=== PATIENT | male | born 1960 | race Caucasian/White ===

== ENCOUNTER 2018-01-07 08:34 | Emergency (ER) | payer OTHER ==
[~2018-01-07] VITALS: Ht 188 cm; Wt 95.3 kg
[2018-01-07] MEDS ORDERED: PAXIL40 MG PO (08:49)
[2018-01-07] MEDS ORDERED: PRILOSEC 20 MG20 MG PO (08:50)
[2018-01-07] MEDS ORDERED: PERCOCET 5-3251 EACH PO (09:55)
[2018-01-07 12:02] VITALS: BP 127/86
== END 2018-01-07 12:27 | disposition home or self-care (01) ==
LOC: ER 08:34
DX: S82.891A Other fracture of right lower leg, initial encounter for closed fracture (principal); W20.8XXA Other cause of strike by thrown, projected or falling object, initial encounter; Y93.89 Activity, other specified; Y92.89 Other specified places as the place of occurrence of the external cause; Y99.8 Other external cause status

== ENCOUNTER → 2018-04-10 | Outpatient (CLI) | payer OTHER ==
[~2018-04-10] MED LIST: PAXIL40 MG PO; PERCOCET 5-3251 EACH PO; PRILOSEC 20 MG20 MG PO
== END ==
LOC: MRI 06:21
DX: S46.012A Strain of muscle(s) and tendon(s) of the rotator cuff of left shoulder, initial encounter (principal)

== ENCOUNTER 2018-06-13 05:30 | Day surgery (SDC) | payer OTHER ==
[~2018-06-13] VITALS: Ht 188 cm; Wt 95.3 kg
--- NOTE | ~2018-06-13 | O ---
[facility] [place] [address] OPERATIVE REPORT Name: SHAUN URIARTE Room #: 150-1 [facility] M.R.#: [id number] Admission: 06/13/18 Attend Phys: Cb Gonzalez Discharge: Date of : 64 Report #: [id number] THIS REPORT FOR: //name// CC: FAM unknown Cb Greene DATE OF SERVICE: 06/13/2018 PREOPERATIVE DIAGNOSES: Left shoulder pain, partial thickness rotator cuff tear, impingement syndrome, frayed glenoid labrum. POSTOPERATIVE DIAGNOSES: Left shoulder rotator cuff tear, upper border of subscapularis, high-grade and partial thickness lesion of the posterior supraspinatus, impingement syndrome, complex labral tear, long head of biceps tendon subluxation and partial thickness tear, glenohumeral joint chondromalacia, subacromial bursitis. PROCEDURE PERFORMED: Right shoulder arthroscopy, rotator cuff repair of the subscapularis and supraspinatus, subacromial decompression, arthroscopic biceps tenodesis, extensive debridement. SURGEON: Cb Greene MD DISTRICT MANAGER IN TRAINING: Moni Tinajero PA-C. ANESTHESIA: General with preoperative interscalene block. FLUIDS: 500 mL crystalloid. ESTIMATED BLOOD LOSS: Less than 5 mL. DESCRIPTION OF PROCEDURE: After proper identification of the patient and operative site in preoperative holding area, the operative site was signed by myself. Prophylactic antibiotics given. The patient elected to receive an interscalene block after reviewing the risks, benefits, alternatives and potential complications with anesthesia. After a satisfactory block, the patient was brought back to the operative suite and after induction of satisfactory general anesthesia, the left shoulder was examined. It was stable throughout a full arc of motion and comparable to the preoperative assessment. The patient was carefully positioned in the right lateral decubitus position, thomas bag and axillary roll were utilized to support the torso. Left shoulder was sterilely prepped and draped in usual manner and placed in 10 pounds of balanced arthroscopic suspension. Posterior portal was established, joint was inflated with an arthroscopic pump set at 40 mmHg. Anterior superior portal was created using a spinal needle for localization. Examination of the glenohumeral joint revealed complex labral fraying and tearing of the anterior superior, [facility] [address] [place] [address] OPERATIVE REPORT Name: SHAUN URIARTE Room #: 150-1 [facility] M..#: [id number] Admission: 06/13/18 Attend Phys: Cb Gonzalez Discharge: Date of : 64 Report #: [id number] posterior superior and posterior inferior quadrants. Frayed labrum was carefully debrided with motorized shaver. Mild chondral thinning and fibrillation was appreciated about the humeral head about its superior half. There was long head of the biceps tendon subluxation on to the upper border of the subscapularis and an upper border tear of approximately the superior centimeter was noted. Frayed portion of the subscapularis was debrided. Lesser tuberosity was prepared with sharp ring curette and motorized shaver. An additional anterior inferior portal was created using a spinal needle for localization. A tendon grasping stitch was placed on the biceps. It was released off the superior labrum. This area was carefully debrided. A FiberTape was placed in a simple manner through the upper border of the subscapularis and it was secured with a 4.75 mm SwiveLock anchor into the lesser tuberosity. The patient had excellent bone quality. Upper border was repaired nicely and stable probing from the articular side. The frayed portion of the more posterior supraspinatus and anterior infraspinatus was carefully debrided. This appeared to be a partial thickness lesion from the articular side. The arthroscope was introduced in the subacromial space where thickened subacromial bursa was encountered. There was fraying in the undersurface of the coracoacromial arch. The CA ligament was released but not resected off the anterolateral acromion and prominence to the acromion was removed using motorized bur. Approximately 2-3 mm of bone was resected here. The lateral portion of the bicipital groove was carefully opened. Ascending artery was carefully cauterized. The tendon was delivered. A whipstitch was placed on its free end and the frayed portion of the tendon was carefully debrided. The tendon was brought back out to length and secured with an Arthrex proximal biceps tenodesis button and its predrilled hole. The button engaged the near cortex, was secure with tension and the tendon was nicely reduced within the groove, which had been prepared with sharp ring curette. The tendon was then tied, was stable to probing. Sutures were cut. At this point, attention was divided to the supraspinatus and area of the posterior supraspinatus and anterior infraspinatus. The probe was easily passed through this tendon. A few remaining articular-sided fibers were carefully debrided and a small approximately 1 cm tear was noted. Soft tissue was removed from the greater tuberosity. This was a nonretracted tear. A single Arthrex 4.75 mm double-loaded anchor was inserted. Sutures were passed in a T-type manner, which anatomically reduced the tear. A double-row fixation was utilized using an additional SwiveLock anchor. Repair construct was stable to probing. Subacromial space was thoroughly irrigated with normal saline and portals closed with simple nylon stitch. Sterile dressing was applied. The patient will be placed in a sling and abduction pillow for 6 weeks with external rotation limited to neutral for the first 4 weeks. Qualified pharmacy assistant utilized throughout the entire procedure to aid in patient limb positioning, [address] [address] OPERATIVE REPORT Name: SHAUN URIARTE Room #: 150-1 [facility] Oralia#: [id number] Admission: 06/13/18 Attend Phys: Cb Gonzalez Discharge: Date of : 64 Report #: [id number] visualization with the arthroscope instrument and suture passage as well as closure and sling application. By: 0930 [id number] Cb Greene MD /nt
[2018-06-13 07:15] VITALS: BP 128/83
[2018-06-13 09:34] VITALS: BP 128/83
== END 2018-06-13 10:40 | disposition home or self-care (01) ==
LOC: OR 05:30 → TBA 05:31 → OR 10:40
DX: M75.102 Unspecified rotator cuff tear or rupture of left shoulder, not specified as traumatic (principal); M25.812 Other specified joint disorders, left shoulder; M75.42 Impingement syndrome of left shoulder; S43.402A Unspecified sprain of left shoulder joint, initial encounter; M94.212 Chondromalacia, left shoulder; M75.52 Bursitis of left shoulder; G47.30 Sleep apnea, unspecified; K21.9 Gastro-esophageal reflux disease without esophagitis; Z79.899 Other long term (current) drug therapy; Z98.890 Other specified postprocedural states; X58.XXXA Exposure to other specified factors, initial encounter; Y93.89 Activity, other specified; Y92.89 Other specified places as the place of occurrence of the external cause; Y99.8 Other external cause status
CPT/HCPCS: 50010; 50101; 50172; 50386; 50417; 50950; 51038; 51847; 52313; 53610; 54170; 56525; 56527; 56530; 57103; 62110; 62900; 64037; 64039; 70005